=== PATIENT | male | born 1995 | race Caucasian/White ===

== ENCOUNTER 2016-11-17 21:24 | Emergency (ER) | payer SELFPAY ==
[~2016-11-17] VITALS: Ht 185.4 cm; Wt 77.1 kg
[~2016-11-17 21:24] MED LIST: AMOX-358 PO; AMPH20TA2 PO
--- OUTSIDE RECORDS SUMMARY | 2016-11-17 21:29 | XMS REPORT | Continuity of Care Document ---
Author Author [facility] Organization [facility] Address Unknown Phone Unavailable Allergies Active Description Code Type Severity Reaction Onset Reported/Identified Relationship to Patient Clinical Status Yes cefaclor [id number] Drug Allergy Unknown N/A 08/14/2015 Yes Sulfa (Sulfonamide Antibiotics) [id number] Drug Allergy Unknown N/A 08/14/2015 Medications Problems Date Dx Coded Attending Type Code Diagnosis Diagnosed By 08/14/2015 CAREN ECHEVARRIA DO Ot J02.9 ACUTE PHARYNGITIS, UNSPECIFIED 08/14/2015 CAREN ECHEVARRIA DO Ot N50.8 OTHER SPECIFIED DISORDERS OF MALE GENITA 08/14/2015 CAREN ECHEVARRIA DO Ot R09.82 POSTNASAL DRIP Procedures Results Encounters ACCT No. Visit Date/Time Discharge Status Pt. Type Provider Facility Loc./Unit Complaint [id number] 08/14/2015 19:29:00 2014 21:42:00 DIS Emergency CAREN ECHEVARRIA DO [facility] ER GROIN PAIN,MULTIPLE COMPLAINTS [id number] 11/17/2016 21:26:00 ACT Emergency CAREN ECHEVARRIA DO [facility] ER RT ARM,SHOULDER PAIN
[2016-11-17] MEDS ORDERED: RX-NAPROXEN (NAPROSYN) 250 MG TAB PPK#4 PO STA (23:58)
[2016-11-17] MEDS ORDERED: RX-TRAMADOL 50 MG (ULTRAM) TAB PPK#4 PO STA (23:58)
[2016-11-18] MEDS ORDERED: NAPR500T3 PO (00:02)
[2016-11-18] MEDS ORDERED: TRAM-42 PO (00:02)
--- NOTE | 2016-11-18 00:02 | ED Upper Extremity ---
General Chief Complaint: Upper Extremity Stated Complaint: RT ARM,SHOULDER PAIN Nursing Triage Note: C/O RT SHOULDER PAIN ONSET TONIGHT WHILE PLAYING [employer]. REPORTS COLLIDED W/ ANOTHER PLAYER ET HEARD A "CRUNCH ET POP". NO OTHER C/O VOICED Nursing Sepsis Screen: No Definite Risk Source: patient History of Present Illness Time seen by provider: 23:32 Initial Comments PT ARRIVES VIA POV STATES HE WAS PLAYING [employer] AND COLLIDED WITH ANOTHER PLAYER, WHO RAN INTO HIS RIGHT SHOULDER, AND FELT A "CRUNCH AND A POP" OCCURRED JUST PRIOR TO ARRIVAL NO PARESTHESIAS OR MOTOR DEFICITS NO OTHER INJURIES PT HAS HAD PRIOR INJURY TO RIGHT CLAVICLE-NO SURGERY [facility] Allergies and Home Medications Allergies Coded Allergies: Sulfa (Sulfonamide Antibiotics) (Unverified Allergy, Unknown, 08/14/15) cefaclor (Unverified Allergy, Unknown, 08/14/15) Home Medications Amoxicillin/Potassium Clav 1 Each Tablet #20 1 EACH PO BID Prescribed by: CAREN ECHEVARRIA on 08/14/152138 Dextroamphetamine/Amphetamine 20 Mg Tablet 20 MG PO BID (Reported) Naproxen 500 Mg Tablet #20 500 MG PO BID Prescribed by: CAREN ECHEVARRIA on 11/18/16 0002 Tramadol HCl 50 Mg Tablet #20 50 MG PO Q4H Prescribed by: CAREN ECHEVARRIA on 11/18/16 0002 Constitutional: no symptoms reported Musculoskeletal: see HPI Skin: no symptoms reported Psychiatric/Neurological: No Symptoms Reported Past Xyduhcx-Pdxyzh-Smxlpj Hx Patient Social History Alcohol Use: Regular Use Recreational Drug Use: Yes Drug of Choice: MARIJUANA, COCAINE(has not used x1yr) Type Used: Smokeless Tobacco 2nd Hand Smoke Exposure: Yes Recent Foreign Travel: No Contact w/Someone Who Travel: No Recent Infectious Disease Expo: No Recent Hopitalizations: No Surgeries HX Surgeries: Yes (LEFT KNEE) Surgeries: Ear Surgery, Orthopedic Respiratory Hx Respiratory Disorders: No Cardiovascular Hx Cardiac Disorders: No Neurological Hx Neurological Disorders: No Reproductive System Hx Reproductive Disorders: No Sexually Transmitted Disease: No Genitourinary Hx Genitourinary Disorders: No Gastrointestinal Hx Gastrointestinal Disorders: No Musculoskeletal Hx Musculoskeletal Disorders: No Endocrine Hx Endocrine Disorders: No HEENT HX ENT Disorders: No Cancer Hx Cancer: No Psychosocial Hx Psychiatric Problems: Yes Behavioral Health Disorders: ADD/ADHD Integumentary HX Skin/Integumentary Disorder: No Blood Transfusions Hx Blood Disorders: No Physical Exam Vital Signs Vital Sign - Last 12Hours 11/17/16 23:14 Temp 98.9 Pulse 88 Resp 20 B/P 131/78 Pulse Ox 100 O2 Delivery Room Air Capillary Refill : Less Than 3 Seconds General Appearance: WD/WN no apparent distress other (GUARDING RIGHT SHOULDER) Neck: non-tender full range of motion normal inspection Cardiovascular: normal peripheral pulses regular rate, rhythm no murmur Respiratory: chest non-tender normal breath sounds no respiratory distress no accessory muscle use Gastrointestinal: non tender soft Back: normal inspection no CVA tenderness no vertebral tenderness Shoulder: bone tenderness (RIGHT )No deformity, limited ROM pain soft tissue tendernessNo swelling Elbow/Forearm: normal inspection, non-tender, no evidence of injury, normal ROM Wrist: Yes normal inspection, Yes non-tender, Yes no evidence of injury, Yes normal ROM Hand: normal inspection, non-tender, no evidence of injury, normal ROM Neurologic/Tendon: normal sensation normal motor functions normal tendon functions Neurologic/Psychiatric: emergency medicine nurse practitioner II-XII nml as tested no motor/sensory deficits alert normal mood/affect oriented x 3 Skin: normal color warm/dry other (NO EXTERNAL EVIDENCE OF TRAUMA) Splinting and Joint Reduction : Immobilizers: Large Shoulder Progress/Results/Core Measures Results/Orders My Orders Orders-CAREN ECHEVARRIA DO Shoulder, Right, 3 Views (11/17/16 23:30) Shoulder Immoblizer (11/17/16 23:54) Rx-Naproxen (Rx-Naprosyn) (11/17/16 23:58) Rx-Tramadol Hcl (Rx-Ultram) (11/17/16 23:58) Vital Signs/I&O Vital Sign - Last 12Hours 11/17/16 11/18/16 23:14 00:31 Temp 98.9 Pulse 88 0 Resp 20 0 B/P 131/78 Pulse Ox 100 0 O2 Delivery Room Air Blood Pressure Mean: 95 Diagnostic Imaging Comments XRAYS RIGHT SHOULDER--NO ACUTE PROCESS, PENDING RADIOLOGIST REVIEW Reviewed: Reviewed by Me Departure Impression Impression: Primary Impression: Right shoulder injury Disposition: 01 HOME, SELF-CARE Condition: Stable Departure-Patient Inst. Referrals: [facility] (PCP) Primary Care Physician ORTHO 4 STATES Patient Instructions: How to Use a Shoulder Sling, Shoulder Pain (DC), Shoulder Sprain (DC) Add. Discharge Instructions: WEAR SHOULDER IMMOBILIZER AT ALL TIMES ICE TO AREA AT 20 MINUTE INTERVALS NO SPORTS, ETC. UNTIL CLEARED BY DR. FOLLOW UP WITH ORTHOPEDIC SURGEON IN 3-4 DAYS FOR FURTHER CARE--CALL IN AM FOR APPOINTMENT All discharge instructions reviewed with patient and/or family. Voiced understanding. Scripts Tramadol HCl (Ultram)50 Mg [id number] Mg PO Q4H #20 TAB Prov:CAREN ECHEVARRIA DO 11/18/16 Naproxen 500 Mg [id number] Mg PO BID #20 TAB Prov:CAREN ECHEVARRIA DO 11/18/16 CAREN ECHEVARRIA DO Nov 18, 2016 00:02
[2016-11-18 00:31] VITALS: BP 0/0
--- NOTE | 2016-11-18 07:23 | Diagnostic Imaging Report ---
INDICATION: Right shoulder pain 3 views of the right shoulder show no fracture, dislocation or other acute abnormalities. IMPRESSION: Negative right shoulder Dictated by: Dictated on workstation # [id number]
== END 2016-11-18 00:31 | disposition home or self-care (01) ==
LOC: EDUNIT# 21:24 → ER 21:26
DX: S49.91XA Unspecified injury of right shoulder and upper arm, initial encounter (principal); W50.0XXA Accidental hit or strike by another person, initial encounter; Y93.65 Activity, lacrosse and field hockey; Y92.328 Other athletic field as the place of occurrence of the external cause; Y99.8 Other external cause status
CPT/HCPCS: 73030; 99283